=== PATIENT | female | born 1985 ===

== ENCOUNTER 2024-11-08 07:50 | Day surgery (SDC) | payer OTHER ==
[2024-11-02 10:15] VITALS: BP 111/1; BP 111/75
[~2024-11-08] VITALS: Ht 170.2 cm; Wt 88.5 kg
[~2024-11-08 07:50] MED LIST: CARAFATE1 GM PO; LOSARTAN-HCTZ1 EACH PO; MAGNESIUM200 MG PO; MULTI-VITAMIN1 EACH PO; PEPCID AC20 MG; SINGULAIR10 MG PO; ZYRTEC10 M3 PO
[2024-11-08] MEDS ORDERED: CEFAZOLIN SODIUM 1,000 MG VIAL ONE (09:01)
[2024-11-08] MEDS ORDERED: PANTOPRAZOLE SODIUM 40 MG/VIAL VIAL ONE (09:59)
[2024-11-08] MEDS ORDERED: SUGAMMADEX SODIUM 200 MG/2 ML VIAL IV ONE (10:00)
[2024-11-08] MEDS ORDERED: LIDOCAINE HCL 1%/EPINEPHRINE 20ML VIAL IJ ONE (10:00)
[2024-11-08] MEDS ORDERED: DEXAMETHASONE SODIUM PHOSPHATE 4 MG/ML VIAL ONE (10:30)
[2024-11-08] MEDS ORDERED: MORPHINE SULFATE 4 MG/ML VIAL IV ONE (13:10)
== END 2024-11-08 14:55 | disposition home or self-care (01) ==
LOC: CIR.AMB 07:50
PROVIDERS: ATTEND Otolaryngology
DX: J38.2 Nodules of vocal cords (principal); J38.1 Polyp of vocal cord and larynx; R49.0 Dysphonia; I10 Essential (primary) hypertension; J45.909 Unspecified asthma, uncomplicated